=== PATIENT | male | born 1945 | race Two or more races ===

== ENCOUNTER 2021-04-28 11:10 | Outpatient (CLI) | payer MEDICARE, BC | END 2021-04-28 23:59 | disposition home health service (06) | LOC: WOU 11:10 | PROVIDERS: ATTEND Podiatrist Foot & Ankle Surgery | DX: G90.09 Other idiopathic peripheral autonomic neuropathy (principal); L97.422 Non-pressure chronic ulcer of left heel and midfoot with fat layer exposed; R60.0 Localized edema; R26.2 Difficulty in walking, not elsewhere classified; C18.9 Malignant neoplasm of colon, unspecified; C78.7 Secondary malignant neoplasm of liver and intrahepatic bile duct; Z79.899 Other long term (current) drug therapy | CPT/HCPCS: 11042 ==

== ENCOUNTER 2021-05-08 11:15 | Outpatient (CLI) | payer MEDICARE, BC ==
[2021-05-08] MEDS ORDERED: LIDOCAINE SOLN 4% 50 ML BOTTLE ONE ×2 (11:19→11:29)
== END 2021-05-08 23:59 | disposition home health service (06) ==
LOC: WOU 11:15
PROVIDERS: ATTEND Podiatrist Foot & Ankle Surgery
DX: G90.09 Other idiopathic peripheral autonomic neuropathy (principal); L97.422 Non-pressure chronic ulcer of left heel and midfoot with fat layer exposed; R26.2 Difficulty in walking, not elsewhere classified; R60.0 Localized edema; Z85.038 Personal history of other malignant neoplasm of large intestine; E78.5 Hyperlipidemia, unspecified
CPT/HCPCS: 15275; Q4196

== ENCOUNTER 2021-05-15 11:00 | Outpatient (CLI) | payer MEDICARE, BC | END 2021-05-15 23:59 | disposition home health service (06) | LOC: WOU 11:00 | PROVIDERS: ATTEND Podiatrist Foot & Ankle Surgery | DX: G90.09 Other idiopathic peripheral autonomic neuropathy (principal); L97.422 Non-pressure chronic ulcer of left heel and midfoot with fat layer exposed; R60.0 Localized edema; R26.2 Difficulty in walking, not elsewhere classified; C18.9 Malignant neoplasm of colon, unspecified; C78.7 Secondary malignant neoplasm of liver and intrahepatic bile duct; E78.5 Hyperlipidemia, unspecified; Z79.899 Other long term (current) drug therapy | CPT/HCPCS: 15275; Q4196 ==

== ENCOUNTER 2021-05-22 11:20 | Outpatient (CLI) | payer MEDICARE, BC | END 2021-05-22 23:59 | disposition home health service (06) | LOC: WOU 11:20 | PROVIDERS: ATTEND Podiatrist Foot & Ankle Surgery | DX: G90.09 Other idiopathic peripheral autonomic neuropathy (principal); L97.422 Non-pressure chronic ulcer of left heel and midfoot with fat layer exposed; R60.0 Localized edema; R26.2 Difficulty in walking, not elsewhere classified; Z85.038 Personal history of other malignant neoplasm of large intestine; E78.5 Hyperlipidemia, unspecified; I82.501 Chronic embolism and thrombosis of unspecified deep veins of right lower extremity | CPT/HCPCS: 15275; Q4196 ==

== ENCOUNTER 2021-05-29 11:05 | Outpatient (CLI) | payer MEDICARE, BC | END 2021-05-29 23:59 | disposition home health service (06) | LOC: WOU 11:05 | PROVIDERS: ATTEND Podiatrist Foot & Ankle Surgery | DX: G90.09 Other idiopathic peripheral autonomic neuropathy (principal); L97.422 Non-pressure chronic ulcer of left heel and midfoot with fat layer exposed; R26.2 Difficulty in walking, not elsewhere classified; R60.0 Localized edema; E78.5 Hyperlipidemia, unspecified; Z79.899 Other long term (current) drug therapy | CPT/HCPCS: 15275; Q4196 ==

== ENCOUNTER 2021-06-05 11:00 | Outpatient (CLI) | payer MEDICARE, BC | END 2021-06-05 23:59 | disposition home health service (06) | LOC: WOU 11:00 | PROVIDERS: ATTEND Podiatrist Foot & Ankle Surgery | DX: G90.09 Other idiopathic peripheral autonomic neuropathy (principal); L97.422 Non-pressure chronic ulcer of left heel and midfoot with fat layer exposed; R26.2 Difficulty in walking, not elsewhere classified; R60.0 Localized edema; Z79.899 Other long term (current) drug therapy | CPT/HCPCS: 15275; Q4196 ==

== ENCOUNTER 2021-06-12 10:25 | Outpatient (CLI) | payer MEDICARE, BC | END 2021-06-12 23:59 | disposition home health service (06) | LOC: WOU 10:25 | PROVIDERS: ATTEND Podiatrist Foot & Ankle Surgery | DX: G90.09 Other idiopathic peripheral autonomic neuropathy (principal); L97.422 Non-pressure chronic ulcer of left heel and midfoot with fat layer exposed; R26.2 Difficulty in walking, not elsewhere classified; R60.0 Localized edema; Z79.899 Other long term (current) drug therapy | CPT/HCPCS: 15275; Q4196 ==

== ENCOUNTER 2021-06-19 10:50 | Outpatient (CLI) | payer MEDICARE, BC | END 2021-06-19 23:59 | disposition home health service (06) | LOC: WOU 10:50 | PROVIDERS: ATTEND Podiatrist Foot & Ankle Surgery | DX: G90.09 Other idiopathic peripheral autonomic neuropathy (principal); L97.422 Non-pressure chronic ulcer of left heel and midfoot with fat layer exposed; R26.2 Difficulty in walking, not elsewhere classified; R60.0 Localized edema | CPT/HCPCS: 15275; Q4133 ×2 ==

== ENCOUNTER 2021-06-26 10:55 | Outpatient (CLI) | payer MEDICARE, BC ==
[2021-06-26] MEDS ORDERED: LIDOCAINE SOLN 4% 50 ML BOTTLE ONE (10:59)
== END 2021-06-26 23:59 | disposition home health service (06) ==
LOC: WOU 10:55
PROVIDERS: ATTEND Podiatrist Foot & Ankle Surgery
DX: G90.09 Other idiopathic peripheral autonomic neuropathy (principal); L97.422 Non-pressure chronic ulcer of left heel and midfoot with fat layer exposed; R60.0 Localized edema; R26.2 Difficulty in walking, not elsewhere classified; Z79.899 Other long term (current) drug therapy
CPT/HCPCS: 11042

== ENCOUNTER 2021-07-03 10:40 | Outpatient (CLI) | payer MEDICARE, BC ==
[2021-07-03] MEDS ORDERED: LIDOCAINE SOLN 4% 50 ML BOTTLE ONE (10:52)
== END 2021-07-03 23:59 | disposition home health service (06) ==
LOC: WOU 10:40
PROVIDERS: ATTEND Podiatrist Foot & Ankle Surgery
DX: G90.09 Other idiopathic peripheral autonomic neuropathy (principal); L97.422 Non-pressure chronic ulcer of left heel and midfoot with fat layer exposed; R60.0 Localized edema; R26.2 Difficulty in walking, not elsewhere classified
CPT/HCPCS: 11042

== ENCOUNTER 2021-07-10 10:45 | Outpatient (CLI) | payer MEDICARE, BC | END 2021-07-10 23:59 | disposition home health service (06) | LOC: WOU 10:45 | PROVIDERS: ATTEND Podiatrist Foot & Ankle Surgery | DX: G90.09 Other idiopathic peripheral autonomic neuropathy (principal); L97.422 Non-pressure chronic ulcer of left heel and midfoot with fat layer exposed; R60.0 Localized edema; R26.2 Difficulty in walking, not elsewhere classified; Z79.899 Other long term (current) drug therapy | CPT/HCPCS: 11042 ==

== ENCOUNTER 2021-07-17 10:40 | Outpatient (CLI) | payer MEDICARE, BC ==
[2021-07-17] MEDS ORDERED: LIDOCAINE 2% JEL 5 ML TUBE ONE (11:12)
== END 2021-07-17 23:59 | disposition home health service (06) ==
LOC: WOU 10:40
PROVIDERS: ATTEND Podiatrist Foot & Ankle Surgery
DX: G90.09 Other idiopathic peripheral autonomic neuropathy (principal); L97.422 Non-pressure chronic ulcer of left heel and midfoot with fat layer exposed; R60.0 Localized edema; R26.2 Difficulty in walking, not elsewhere classified; Z79.899 Other long term (current) drug therapy
CPT/HCPCS: 11042

== ENCOUNTER 2021-07-24 10:50 | Outpatient (CLI) | payer MEDICARE, BC | END 2021-07-24 23:59 | disposition home health service (06) | LOC: WOU 10:50 | PROVIDERS: ATTEND Podiatrist Foot & Ankle Surgery | DX: G90.09 Other idiopathic peripheral autonomic neuropathy (principal); R60.0 Localized edema; R26.2 Difficulty in walking, not elsewhere classified; Z79.899 Other long term (current) drug therapy | CPT/HCPCS: G0463 ==

== ENCOUNTER 2021-08-07 11:00 | Outpatient (CLI) | payer MEDICARE, BC | END 2021-08-07 23:59 | disposition home health service (06) | LOC: WOU 11:00 | PROVIDERS: ATTEND Podiatrist Foot & Ankle Surgery | DX: G90.09 Other idiopathic peripheral autonomic neuropathy (principal); L97.422 Non-pressure chronic ulcer of left heel and midfoot with fat layer exposed; R60.0 Localized edema; Z79.899 Other long term (current) drug therapy | CPT/HCPCS: 11042 ==